=== PATIENT | male | born 1945 | race Caucasian/White ===

== ENCOUNTER 2022-01-10 00:03 | Day surgery (SDC) | payer MEDICARE, OTHER, SELFPAY ==
[2021-12-29 12:53] VITALS: BMI 27.4
[2022-01-10 08:15] VITALS: BP 131/81; PULSE 91; RESP 16; TEMP 36.9; O2SAT 97
[2022-01-10] MEDS: LACTATED RINGERS 1,000 ML 150 ML IV CONT (08:26)
--- NOTE | 2022-01-10 08:48 | WPDANESEPPF ---
Anes - Initial Pre Proc Eval Procedure: Operation Date: 01/10/22 09:30 Proposed Procedures p Esophagogastroduodenoscopy & Screening Colonoscopy - Marquise Guzman MD Date/Time: 01/10/22 08:48 Surgeon: Marquise Guzman MD Pre Op Diagnosis: hx of colon polyps, Alejo's Esophagus Patient Data Age: 76 Gender: M Height: 1.73 m Weight: 79.5 kg Last Vital Signs Temp 36.9 C 01/10/22 08:15 Pulse 91 01/10/22 08:15 Resp 16 01/10/22 08:15 BP 131/81 01/10/22 08:15 Pulse Ox 97 01/10/22 08:15 Allergies Allergy/AdvReac Type Severity Reaction Status Date / Time No Known Allergies Allergy Verified 01/10/22 08:14 Home Medications Medication Instructions Recorded Confirmed Type flaxseed oil 1,000 mg capsule 1,000 mg PO BID 11/30/21 01/10/22 History omeprazole 40 mg capsule,delayed 40 mg PO BID 11/30/21 01/10/22 History release vitamins A,C,B-dkcj-ofcstj 14,320 1 cap PO BID 11/30/21 01/10/22 History unit-226 mg-200 unit capsule aspirin 325 mg PO DAILY 12/29/21 01/10/22 History Patient hx anesthesia problems: none Family hx anesthesia problems: none Results Review: All pre-operative results and documents have been reviewed as part of the pre-operative evaluation. [facility] Past Medical History Medical History Dupuytren contracture GERD (gastroesophageal reflux disease) TIA (transient ischemic attack) Family History Family History Father Cancer of unknown origin Social History Social History Smoking status: Never smoker Alcohol intake: current Drinks per week: 2 Alcohol use details: social Substance use: never Living arrangements: with family Spiritual care concerns: No Anes - Eval Final PreProcedure Day of Procedure 01/10/22 08:48 Patient weight: overweight Heart: regular rate and rhythm Lungs: clear to auscultation Airway: Mallampati scale class II Neurological: other (alert hard of hearing) Last oral intake: >/= 8 hours ASA classification: III Emergent: no Anesthetic plan: proceed Anesthesia type and monitoring: general GIVS and standard monitoring Results Review: All pre-operative results and documents have been reviewed as part of the pre-operative evaluation. Informed Consent: The patient's anesthetic plan and its attendant risks and benefits were discussed with the patient/family/POA. Questions were solicited and answers provided to the satisfaction of the patient/family/POA.
--- NOTE | 2022-01-10 08:53 | P.CONGI_ITS ---
Assessment and Plan Assessment and plan (1) Alejo's esophagus: Code(s): K22.70 - Alejo's esophagus without dysplasia Status: Acute Assessment and Plan: Patient with prior history of Barretts esophagus. Plan is for surveillance EGD at this time. Currently maintained on omeprazole 40mg p.o. daily. We will continue this as well as anti-reflux measures. Further recommendations may be given after endoscopy. (2) History of colon polyps: Code(s): Z86.010 - Personal history of colonic polyps Status: Acute Assessment and Plan: Patient has a history of colon polyps resected elsewhere 5 years ago. Patient presents today for follow-up examination. GI Consult Note Consult date/time: 01/10/22 08:53 HPI: Candelario Osorio is a 76 year old male Presents for colonoscopy and EGD. Patient followed elsewhere by previous purchasing officer was diagnosed with Alejo's esophagus. Also found to have a colon polyp 5 years ago. Patient presents today for follow-up both these conditions. He denies any heartburn. He has had no dysphagia. His weight remains stable. Bowel habits are normal. Denies abdominal pain he has had no bleeding. He does have a somewhat poor memory in his history is difficult to ascertain specifics. Review of Systems Review of Systems: All systems reviewed & are unremarkable except as noted in HPI and below PMFSH Past Medical History Medical History Dupuytren contracture GERD (gastroesophageal reflux disease) TIA (transient ischemic attack) Family History Family History Father Cancer of unknown origin Social History Social History Smoking status: Never smoker Alcohol intake: current Drinks per week: 2 Alcohol use details: social Substance use: never Living arrangements: with family Spiritual care concerns: No Meds Home Medications and Allergies Home Medications Medication Instructions Recorded Confirmed Type flaxseed oil 1,000 mg capsule 1,000 mg PO BID 11/30/21 01/10/22 History omeprazole 40 mg capsule,delayed 40 mg PO BID 11/30/21 01/10/22 History release vitamins A,C,R-agdt-qfbtqw 14,320 1 cap PO BID 11/30/21 01/10/22 History unit-226 mg-200 unit capsule aspirin 325 mg PO DAILY 12/29/21 01/10/22 History Allergies Allergy/AdvReac Type Severity Reaction Status Date / Time No Known Allergies Allergy Verified 01/10/22 08:14 Vital Signs Vital Signs - 24 hr 01/10/22 08:15 Temperature 98.4 F Pulse Rate 91 Respiratory Rate 16 Blood Pressure 131/81 Pulse Oximetry 97 Exam Narrative: physical exam reveals patient to be alert. Vital signs stable. HEENT exam is unremarkable. Patient is anicteric. Lungs are clear to auscultation and percussion. Heart is without murmur or extra sounds. Abdominal exam bowel sounds are present soft nontender with no hepatosplenomegaly. Digital external rectal exam is normal.
--- NOTE | 2022-01-10 09:38 | SUR.OPER ---
EGD end 933 COLONOSCOPY start 937
[2022-01-10 09:52] VITALS: BP 117/76; PULSE 77; RESP 19; O2SAT 94
[2022-01-10 10:02] VITALS: BP 119/77; PULSE 65; RESP 14; O2SAT 96
[2022-01-10 10:12] VITALS: BP 135/84; PULSE 64; RESP 21; O2SAT 99
== END 2022-01-10 10:33 | disposition home or self-care (01) ==
PROVIDERS: PCP Family Medicine; Visit Provider Internal Medicine Gastroenterology
PROC: 0DJ08ZZ Inspection of Upper Intestinal Tract, Via Natural or Artificial Opening Endoscopic (ICD-10-PCS; CPT 43235; principal; 2022-01-10 09:30)
DX: Z12.11 Encounter for screening for malignant neoplasm of colon (principal); K64.8 Other hemorrhoids; K57.30 Diverticulosis of large intestine without perforation or abscess without bleeding; K21.9 Gastro-esophageal reflux disease without esophagitis; K44.9 Diaphragmatic hernia without obstruction or gangrene; M72.0 Palmar fascial fibromatosis [Dupuytren]; Z86.73 Personal history of transient ischemic attack (TIA), and cerebral infarction without residual deficits; Z79.82 Long term (current) use of aspirin
CPT/HCPCS: 43235; G0105; J2704; J7120